=== PATIENT | male | born 1990 | race Asian ===

== ENCOUNTER → 2020-10-29 | Outpatient (CLI) | payer OTHER | LOC: M.LAB 11:39 | PROVIDERS: ATTEND Surgery | DX: Z01.812 Encounter for preprocedural laboratory examination (principal); Z20.828 Contact with and (suspected) exposure to other viral communicable diseases; N18.6 End stage renal disease ==

== ENCOUNTER → 2020-11-05 | Day surgery (SDC) | payer OTHER ==
[~2020-11-05] MED LIST: COREG6.25 MG PO; LISINOPRIL10 MG PO; NORCO 10-325 T1 EACH PO; PHOSLO667 MG PO; RENAPLEX TABLE1 EACH PO; RENAPLEX-D TAB1 EACH PO
--- NOTE | ~2020-11-05 | OP ---
[facility] [address] [place] [address] OPERATIVE REPORT Name: SERINA MARX Room: [facility] M.R.#: [id number] Admission: 11/05/20 Attend Phys: Brody Villeda Discharge: Date of : 86 Report #: [id number] THIS REPORT FOR: cc: Fransico Ludwig MD, Tuongvan T. MD ~ Brody Villeda MD DATE OF SERVICE: 11/05/2020 PREOPERATIVE DIAGNOSIS: End-stage renal disease. POSTOPERATIVE DIAGNOSIS: End-stage renal disease. OPERATION: 1. Laparoscopic placement of peritoneal tunneled intraperitoneal catheter. 2. Laparoscopic omentopexy. SURGEON: Brody Villeda MD ANESTHESIA: General. ESTIMATED BLOOD LOSS: Minimal. SPECIMEN: None. DESCRIPTION OF PROCEDURE: After informed consent was obtained, the patient was brought to the operating room and placed supine. SCDs were placed and working, preoperative antibiotics were administered, general anesthesia was induced. The abdomen was prepped and draped in the usual sterile fashion. A 5 mm incision was made in the left upper quadrant. A 5 mm trocar was placed under direct vision. Pneumoperitoneum was established. A left sided 5 mm trocar was placed. The omentum was then grasped and brought up to the right upper quadrant. A 2-0 Vicryl suture was used using a PMI suture passer to go through the skin through the omentum and the back out through the skin and this was tightened down, performing the omentopexy. An 8 mm trocar was placed in the left rectus sheath. A 62 cm Covidien catheter was inserted. The catheter tip was placed down the pelvis. The catheter was then tunneled to the left upper quadrant of the abdomen. It flushed easily with 750 mL of heparinized saline. It drained easily as well. The ports were removed under direct vision. The skin was closed with 4-0 Monocryl. Incisions were dressed with Steri-Strips and an occlusive dressing. COMPLICATIONS: [place] [address] OPERATIVE REPORT Name: SERINA MARX [id number] Admission: 11/05/20 Attend Phys: Brody Villeda Discharge: Date of : 86 Report #: [id number] DISPOSITION: The patient was taken to recovery in satisfactory condition. By: 0842 [id number] Villeda MD /abida
[2020-11-05 06:39] LABS: HEMATOCRIT 40.5 % (42.0-52.0); HEMOGLOBIN 13.5 gm/dL (14.0-18.0); MCH 29.3 pg (26.0-34.0); MCHC 33.3 g/dL (28.0-37.0); MCV 88.1 fL (80.0-100.0); MPV 8.9 fl. (7.2-11.1); RBC 4.6 mil/uL (4.50-6.00); RDW-CV 16.8 % (10.5-14.5); WBC 8.2 thou/uL (4.0-11.0)
[2020-11-05 06:50] LABS: CALCIUM 9.9 mg/dL (8.5-10.1); CREATININE 9.1 mg/dL (0.6-1.3); POTASSIUM 5.2 mmol/L (3.5-5.1)
--- NOTE | 2020-11-05 10:47 | EKG ---
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 SUERO : 1990 Requested By: Brody Villeda Order Number: [id number] Dewey MD: Torsten Lion Measurements Intervals [place] Rate: 86 P: 60 NE: 133 QRS: 46 QRSD: 76 T: 64 QT: 370 QTc: 443 Interpretive Statements Sinus rhythm ST elev, probable normal early repol pattern No previous ECG available for comparison Electronically Signed On 11-05-2020 10:46:51 [employer] by Torsten Lion [email or web address] <ELECTRONICALLY SIGNED> By: Torsten Lion MD, [facility] 11/05/20 1046 Torsten Lion MD, [facility] /EPI
== END | disposition home or self-care (01) ==
LOC: M.SUR 06:08
PROVIDERS: ATTEND Surgery
DX: I12.0 Hypertensive chronic kidney disease with stage 5 chronic kidney disease or end stage renal disease (principal); N18.6 End stage renal disease; Z98.890 Other specified postprocedural states; Z79.899 Other long term (current) drug therapy

== ENCOUNTER 2021-01-02 07:52 | Observation (INO) | payer OTHER ==
[~2021-01-02] VITALS: Ht 170.2 cm; Wt 75.7 kg
--- NOTE | ~2021-01-02 | CON ---
[address] [address] CONSULTATION Name: SERINA MARX Room: [facility].#: [id number] Admission: 01/02/21 Attend Phys: Brody Villeda Discharge: Date of : 86 Report #: [id number] THIS REPORT FOR: cc: Fransico Ludwig MD, Tuongvan T. MD ~ Michael Brito MD DATE OF SERVICE: 01/02/2021 REQUESTING PHYSICIAN: Dr. Villeda REASON FOR CONSULTATION: Providing emergent dialysis HISTORY OF PRESENT ILLNESS: The patient is a very pleasant 30-year-old gentleman with medical history significant for end-stage renal disease. He has been on dialysis for the last 6 months. He is status-post hemodialysis and he has left upper arm AV fistula, also has right internal jugular tunneled dialysis catheter in place. He also has peritoneal catheter. His peritoneal catheter was malpositioned and he was brought here for procedure; however, was found to have elevated potassium at 7.0, his creatinine was 16.0, BUN 89, and I was consulted. PAST MEDICAL HISTORY: As I mentioned earlier. SOCIAL HISTORY: No tobacco or alcohol abuse. FAMILY HISTORY: Noncontributory. MEDICATIONS: Reviewed. REVIEW OF SYSTEMS: He feels fine, no problem. He states that he had PD dialysis was done yesterday without problems. PHYSICAL EXAMINATION: GENERAL: He is awake, alert, and oriented. HEENT: His pupils are round. NECK: Supple. LUNGS: Clear. CARDIOVASCULAR: Regular rate. ABDOMEN: Soft. EXTREMITIES: Lower extremities with no edema. He has PD catheter in place, nontender. He has got right internal jugular tunneled dialysis catheter in place and he has left brachiocephalic fistula. ASSESSMENT: [facility] [address] [place] [address] CONSULTATION Name: SERINA MARX [id number] Admission: 01/02/21 Attend Phys: Brody Villeda Discharge: Date of : 86 Report #: [id number] 1. End-stage renal disease. 2. Hyperkalemia. 3. Malfunctioning peritoneal dialysis catheter. 4. Hypertension. PLAN: Dialysis today and then Dr. Villeda will adjust the PD catheter as necessary. Discussed with the patient's nurse. By: 1201 1210Michael Brito MD /nt
[~2021-01-02 07:52] MED LIST changes: +RENVELA0.8 GM PO
[2021-01-02 08:34] LABS: HEMATOCRIT 31.1 % (42.0-52.0); HEMOGLOBIN 10.3 gm/dL (14.0-18.0); MCH 29.9 pg (26.0-34.0); MCV 90.8 fL (80.0-100.0); MPV 7.8 fl. (7.2-11.1); RBC 3.43 mil/uL (4.50-6.00); RDW-CV 19.8 % (10.5-14.5); WBC 8.2 thou/uL (4.0-11.0)
[2021-01-02 08:42] LABS: CALCIUM 8.9 mg/dL (8.5-10.1)
[2021-01-02 08:43] LABS: POTASSIUM 6.2 mmol/L (3.5-5.1)
--- NOTE | 2021-01-02 11:56 | EKG ---
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 01/02/21 1155 1137 1137 Torsten Lion MD, [facility] /EPI
[2021-01-02 18:32] VITALS: BP 181/96
[2021-01-02 20:00] VITALS: BP 182/98
[2021-01-02 23:45] VITALS: BP 121/79
[2021-01-03 04:13] VITALS: BP 139/88
[2021-01-03 09:01] VITALS: BP 122/69
[2021-01-03 12:00] VITALS: BP 144/93
[2021-01-03 16:04] VITALS: BP 144/93
== END 2021-01-03 17:20 | disposition home or self-care (01) ==
LOC: M.SUR 07:52 → M.2W 12:18 → M.TBA 12:18 → M.2W 14:15 → M.SUR 16:16 → M.2W 01-03 17:20
PROVIDERS: ADMIT Surgery; ATTEND Surgery
DX: I12.0 Hypertensive chronic kidney disease with stage 5 chronic kidney disease or end stage renal disease (principal); N18.6 End stage renal disease; E87.5 Hyperkalemia; T82.41XA Breakdown (mechanical) of vascular dialysis catheter, initial encounter; Z79.899 Other long term (current) drug therapy; Z20.828 Contact with and (suspected) exposure to other viral communicable diseases

== ENCOUNTER → 2021-01-09 | Day surgery (SDC) | payer OTHER ==
[~2021-01-09] VITALS: Ht 165.1 cm; Wt 72.6 kg
[~2021-01-09] MED LIST changes: +NORCO5 PO
[2021-01-09 13:03] LABS: HEMATOCRIT 34.1 % (42.0-52.0); HEMOGLOBIN 11.4 gm/dL (14.0-18.0); MCH 30.1 pg (26.0-34.0); MCHC 33.3 g/dL (28.0-37.0); MCV 90.6 fL (80.0-100.0); MPV 8.2 fl. (7.2-11.1); RBC 3.77 mil/uL (4.50-6.00); RDW-CV 18.7 % (10.5-14.5); WBC 7.7 thou/uL (4.0-11.0)
[2021-01-09 13:10] LABS: CALCIUM 9.4 mg/dL (8.5-10.1); CREATININE 6.2 mg/dL (0.6-1.3); POTASSIUM 3.9 mmol/L (3.5-5.1)
--- NOTE | 2021-01-11 09:15 | OP ---
[facility] [address] [place] [address] OPERATIVE REPORT Name: SERINA MARX Room: [facility] M.R.#: [id number] Admission: 01/09/21 Attend Phys: Brody Villeda Discharge: Date of : 86 Report #: [id number] THIS REPORT FOR: cc: Fransico Ludwig MD, Tuongvan T. MD ~ Brody Villeda MD DATE OF SERVICE: 01/09/2021 PREOPERATIVE DIAGNOSIS: Malfunctioning peritoneal catheter. POSTOPERATIVE DIAGNOSIS: Malfunctioning peritoneal catheter. OPERATION: Diagnostic laparoscopy. SURGEON: Brody Villeda MD ANESTHESIA: General. ESTIMATED BLOOD LOSS: Minimal. SPECIMEN: None. DESCRIPTION OF PROCEDURE: After informed consent was obtained, the patient was brought to the operating room and placed supine. SCDs were placed and working, preoperative antibiotics were administered, general anesthesia was induced. The abdomen was prepped and draped in the usual sterile fashion. A 5-mm incision was made in the left upper quadrant. A 5-mm trocar was placed under direct vision. Pneumoperitoneum was established. A 5-mm port was placed in the left lower quadrant. The tip of the catheter was in some small bowel. I then just grasped it and moved it down to the pelvis. Otherwise, the catheter was free. There were no adhesions. I then flushed the catheter with 700 mL of heparinized saline. It drained easily as well. The ports were removed under direct vision. The skin was closed with 4-0 Monocryl. Incisions were dressed with Steri-Strips. COMPLICATIONS: None. DISPOSITION: The patient was taken to recovery in satisfactory condition. <ELECTRONICALLY SIGNED> By: Brody Villeda MD 01/11/21 0915 1729 1748Brody Villeda MD /nt
== END | disposition home or self-care (01) ==
LOC: M.SUR 06:05
PROVIDERS: ATTEND Surgery
DX: T85.611A Breakdown (mechanical) of intraperitoneal dialysis catheter, initial encounter (principal); I12.0 Hypertensive chronic kidney disease with stage 5 chronic kidney disease or end stage renal disease; N18.6 End stage renal disease; Z98.890 Other specified postprocedural states; Z79.899 Other long term (current) drug therapy; Z20.822 Contact with and (suspected) exposure to COVID-19; Z87.891 Personal history of nicotine dependence; Y83.8 Other surgical procedures as the cause of abnormal reaction of the patient, or of later complication, without mention of misadventure at the time of the procedure